=== PATIENT | male | born 1955 | race Caucasian/White ===

== ENCOUNTER 2018-11-09 21:11 | Inpatient (IN) ==
[2018-11-09] MEDS ORDERED: DOXYCYCLINE PO ONE (22:54)
[2018-11-09] MEDS ORDERED: SOLU-MEDROL IV ONE (22:54)
[2018-11-09] MEDS ORDERED: DUONEB (A & A) INH ONE (22:54)
[2018-11-09 23:21] LABS: BASO# 0.08 X1000 (0.0-0.2); BASO% 1.5 % (0.0-0.8); EOS# 0.23 X1000 (0.0-0.7); EOS% 4.4 % (0.0-10.0); HEMATOCRIT 40.2 % (42.0-52.0); IMM GRAN# 0.02 X1000 (0.0-0.04); IMM GRAN% 0.4 % (0.0-0.5); LYMPH# 1.77 X1000 (1.2-3.4); LYMPH% 33.6 % (20.5-51.1); MCH 26.5 PG (27-31); MCHC 32.3 g/dL (33-37); MCV 81.9 FL (81-99); MONO# 1.09 X1000 (0.11-0.59); MONO% 20.7 % (1.7-9.3); MPV 9.6 FL (7.4-10.4); NEUT# 2.08 X1000 (1.4-6.5); NEUT% 39.4 % (42.2-75.2); PLT 272 X1000 (130-400); RBC 4.91 XMIL (4.7-6.1); RDW 14.2 % (11.5-14.5); WBC 5.27 X1000 (4.8-10.8)
[2018-11-09 23:28] LABS: AGAP 11; ALB/GLOB RATIO 1.1; ALBUMIN 4.2 g/dL (3.5-5.0); ALKALINE PHOSPHATASE 43 U/L (32-122); BUN 18 mg/dL (8-22); CALCIUM 8.5 mg/dL (8.8-10.2); CHLORIDE 106 mmol/L (98-107); COSMO 285; CREATININE 0.8 mg/dL (0.7-1.2); ESTIMATED GFR > 60; GLUCOSE 103 mg/dL (70-104); GOT 27 U/L (10-34); GPT 18 U/L (10-44); POTASSIUM 3.8 mmol/L (3.5-5.1); SODIUM 142 mmol/L (136-145); TCO2 25 mmol/L (25-35); TOTAL PROTEIN 7.9 g/dL (6.3-8.3)
--- NOTE | 2018-11-10 00:08 | PROVIDER DOCUMENTATION ---
This chart was entered by Minerva Mccallum Scribe, acting as scribe for Tigre Box MD. HPI-Respiratory General - General Chief Complaint: Shortness of Breath Stated Complaint: "shortness of breath" Time Seen by Provider: 11/09/18 21:15 Source: patient Allergies/Adverse Reactions: Patient Allergies Allergy/AdvReac Type Severity Reaction Status Date / Time vancomycin Allergy ANAPHYLAXIS Verified 02/21/18 03:31 hydrocodone AdvReac Severe VOMITING Verified 02/21/18 03:31 Home Medications: Home Medication List Medication Instructions Recorded Confirmed Last Taken Type Aspirin [Lo-Dose Aspirin EC] 81 mg PO QAM 02/21/18 02/21/18 02/20/18 History Carvedilol [Coreg] 25 mg PO BID 02/21/18 02/21/18 02/20/18 History Clonidine HCl [Clonidine HCl ER] 0.1 mg PO BID PRN PRN 02/21/18 02/21/18 History Furosemide [Lasix] 40 mg PO DAILY 02/21/18 02/21/18 02/20/18 History Lisinopril 1 tab PO BID 02/21/18 02/21/18 02/20/18 History Meclizine [Antivert] 25 mg PO 3-4XDAY PRN PRN #30 tab 02/21/18 Unknown Rx Tramadol [Ultram] 50 mg PO Q6H PRN PRN 02/21/18 02/21/18 Unknown History Cephalexin [Keflex] 500 mg PO BID #14 cap 06/23/18 Unknown Rx - History of Present Illness-Resp Nature of Presenting Problem: 63yom with hx HTN c/o productive cough with yellow sputum and sob for 2 days. He reports he had diaphoresis today. He reports he has not had a bowel movement since yesterday. He denies fever, chills, n,v,d,cp. The patient's daughter is at bedside. Quality of Pain: reports: aching Severity in ED: reports: mild Onset/Duration: reports: 2 days ago Timing: reports: still present, intermittent Cough Quality/Degree: reports: moderate, productive cough Current Respiratory Medication Therapy: Initiated see nurses note Modifying Factors: improves with: nothing Associated Symptoms: reports: cough, shortness of breath. denies: fever/chills Similar Symptoms Previously?: No Recently seen or treated by another doctor?: No Review of Systems - Adult - REVIEW OF SYSTEMS - ADULT Constitutional: denies: chills, fever Eyes: denies: discharge, dry eyes Ears, Nose, Mouth & Throat: denies: ear discharge, ear pain Cardiovascular: denies: chest pain, palpitations Respiratory: reports: cough, shortness of breath Gastrointestinal: denies: abdominal pain, diarrhea, nausea, vomiting Genitourinary: denies: dysuria, hematuria Musculoskeletal: denies: back pain, muscle aches, muscle weakness Integumentary: reports: no symptoms reported Neurological: denies: dizziness/vertigo, headache/migraines Psychiatric: reports: no symptoms reported Endocrine: reports: no symptoms reported Hematologic/Lymphatic: reports: no symptoms reported Allergic/Immunologic: reports: no symptoms reported All Other Systems: Reviewed and Negative Past History - Adult - PAST MEDICAL HISTORY-ADULT Review of Records: reports: Old Records Reviewed, Nursing Assessment Review, Medications Reviewed Major Childhood Illnesses: reports: denies history Cardiovascular: reports: HTN Respiratory: reports: denies history Gastrointestinal: reports: other (chronic constipation from opiod use) Obstetrical/Gynecological: reports: denies history Genitourinary: reports: kidney disease, kidney stones Musculoskeletal: reports: arthritis, chronic pain Neurological: reports: denies history Endocrine/Immune: reports: denies history Other Conditions: reports: denies history - PRIOR SURGERIES/PROCEDURES Surgical/Procedure History: reports: reviewed, not pertinent - IMMUNIZATION STATUS Childhood Immunizations: See Nurse Assessment Flu Vaccine: See Nurse Assessment - FAMILY HISTORY Family History: reviewed, not pertinent - SOCIAL HISTORY Smoking: non-smoker Substance Use: denies Living Situation: family Physical Exam-General - PHYSICAL EXAM-ADULT Initial Vital Signs Reviewed: Yes - CONSTITUTIONAL General Appearance: alert, no apparent distress - EYES Eyes: PERRL/EOMI, pink conjunctivae - NECK Neck: non-tender, supple - RESPIRATORY Respiratory: rhonchi (bilaterally in lower lung cordero), wheezing (expiratory, bilaterally) - CARDIOVASCULAR Cardiovascular: regular rate, rhythm, no murmur - GASTROINTESTINAL (ABDOMEN) Abdominal Exam: normal bowel sounds, soft, tenderness (LUQ) - MUSCULOSKELETAL Extremity: normal range of motion, non-tender, normal inspection, no pedal edema - SKIN Integumentary: normal color, warm/dry - NEUROLOGIC Neurologic: grossly normal, no motor/sensory deficits - PSYCHIATRIC Psych/Mental Status: normal mood/affect, normal thought content, normal thought process, oriented x 3 Progress - PLAN OF CARE/RESULTS Progress/Plan/Lab Results: Vital Signs - 8 hr 11/09/18 21:15 11/09/18 23:25 Temperature 98.0 F Pulse Rate 62 83 Respiratory Rate 20 20 Blood Pressure 165/82 O2 Sat by Pulse Oximetry 91 L 99 Laboratory Results - last 24 hr 11/09/18 11/09/18 21:24 21:24 WBC 5.27 RBC 4.91 Hgb 13.0 L Hct 40.2 L MCV 81.9 MCH 26.5 L MCHC 32.3 L RDW Std Deviation 14.2 Plt Count 272 MPV 9.6 Immature Gran % (Auto) 0.4 Neut % (Auto) 39.4 L Lymph % (Auto) 33.6 Wilkin % (Auto) 20.7 H Eos % (Auto) 4.4 Baso % (Auto) 1.5 H Immature Gran # (Auto) 0.02 Neut # (Auto) 2.08 Lymph # (Auto) 1.77 Wilkin # (Auto) 1.09 H Eos # (Auto) 0.23 Baso # (Auto) 0.08 Sodium 142 Potassium 3.8 Chloride 106 Carbon Dioxide 25 Anion Gap 11 BUN 18 Creatinine 0.8 Estimated GFR/1.73 m2 > 60 BUN/Creatinine Ratio 23 Glucose 103 Calculated Osmolality 285 Calcium 8.5 L Total Bilirubin 0.50 AST 27 ALT 18 Alkaline Phosphatase 43 Total Protein 7.9 Albumin 4.2 Globulin 3.7 Albumin/Globulin Ratio 1.1 Orders Category Date Time Status CHEST-2 VIEWS [RAD] Stat Exams 11/09/18 22:52 Taken CBC WITH ELECTRONIC DIFF [HEME] Stat Lab 11/09/18 21:24 Completed COMPREHENSIVE METABOLIC PANEL [CHEM] Stat Lab 11/09/18 21:24 Completed Albuterol 2.5MG/Ipratrop 0.5MG [Duoneb (A & A)] Med 11/09/18 22:54 Discontinued 3 ml INH NOW ONE Doxycycline Med 11/09/18 22:54 Discontinued 100 mg PO NOW ONE Methylprednisolone Sod Succ [Solu-Medrol] Med 11/09/18 22:54 Discontinued 80 mg IV NOW ONE Aerosol Treatments Stat Oth 11/09/18 22:54 Completed Result Diagrams: 11/09/18 21:24 11/09/18 21:24 - EKG 1 Time of EKG reading by physician:: 21:20 EKG Read and Signed by:: Tigre Box EKG Interpretation (*Must complete 3 of following elements*): Abnormal Rate: 60 Rhythm: Undetermined rhythm [place]: normal QRS: normal Comments: Septal infarct, No STEMI - XRAY 1 XRAY Study: Chest Impression: Abnormal (left lower lobe pneumonia) Departure - Departure Date of Disposition Decision: 11/10/18 Time of Disposition Decision: 00:08 DIAGNOSIS: Pneumonia Disposition: ADMITTED INPATIENT 09 Certified Medical Emergency: Emergent Condition: Stable Additional Freetext Instructions: ED Follow Up Instructions: You have been treated by a care provider in the Emergency Department. These instructions are being provided to you so you can have an understanding of how to care for yourself upon discharge. Upon discharge from the Emergency Department, you are responsible for making arrangements for follow-up care by a physician of your choice. Take all prescribed medications as directed. Return to the Emergency Department immediately for any new or worsening symptoms. You may call the Physician Referral phone number at [phone] to obtain a list of Physicians who are taking new patients. Referrals and Follow-Ups: [facility] [Primary Care Provider] - - Critical Care Note This patient required my direct & personal management of CC.: No Attestation - Physician/ ASUNCION Attestation Patient care was provided by Advanced Practice Provider:: No The physician spent face to face time with patient:: Yes Advanced Practice Provider documentation review:: Supervising physician onsite and consulted in the evaluation and care of this patient. The physician did have a face to face encounter with the patient. This chart was documented by the indicated scribe, (Minerva Mccallum, Susanibstephanie) and accurately reflects the services I performed and decisions made by me, Tigre Box MD, as attested by the provider's signature.
[2018-11-10] MEDS: ROCEPHIN 1 GM in NS 50 ML IV SCH (02:00)
[2018-11-10 02:37] LABS: MAGNESIUM 2.2 mg/dL (1.5-2.7)
[2018-11-10 02:43] LABS: INR 0.98; PROTIME 13.8 Seconds (11.0-16.0)
[2018-11-10 02:44] LABS: PTT 31.7 Seconds (22.3-41.8)
[2018-11-10] MEDS: ZITHROMAX 500 MG/NS 500 MG/250 ML IVPB IV SCH (03:00)
[2018-11-10] MEDS ORDERED: DUONEB (A & A) INH PRN (05:06)
[2018-11-10] MEDS ORDERED: DUONEB (A & A) INH SCH (05:06)
[2018-11-10] MEDS ORDERED: ZOFRAN IV PRN (05:06)
[2018-11-10] MEDS ORDERED: TYLENOL PO PRN (05:06)
--- NOTE | 2018-11-10 06:59 | HISTORY AND PHYSICAL ---
PRIMARY CARE PROVIDER: Dr. Edwar Cai in [place]. CHIEF COMPLAINT: Shortness of breath. HISTORY OF PRESENT ILLNESS: Mr. Moody is a 63-year-old, male, who states that for approximately one week now that he has been feeling weak and fatigued. He stated that approximately 3-days-ago that he began having a productive cough that initially had white thin sputum, though now has yellow sputum. He states that he does know if he has had a fever, though states that he has had periods where he broke out in a sweat. He does report body aches. He has reported that he has been around people recently who have had cold-type symptoms, though does not know if he has been around anyone with the flu. The patient states that he normally does not require any oxygen supplementation. He states that yesterday he began feeling short of breath after he had gotten home. He states that he went to take a shower and became acutely short of breath to the point where he said he could not catch his breath at all. He said he broke out in a sweat. They did call the ambulance to bring him to the ER. EMS reported that when they got on scene that his oxygen saturation was 85% on room air. Since that time he has been placed on nasal cannula at 2 L and has attained adequate oxygen saturations in the mid to high 90s. He is also reporting a headache, though he denies any dizziness. He denies any chest pain. The patient states he does feel like his abdomen may be a little more distended than normal, though he states that he does have problems with chronic constipation and his last bowel movement was approximately 4-days-ago. He denies any nausea or vomiting. He denies any hematochezia or melena. He denies any dysuria or urinary frequency. The patient states he does have some intermittent swelling in his lower extremities for which he does take Lasix, though he states that this is not worse than his normal at this time. Upon evaluation in the ER, as previously mentioned the patient was found on scene by EMS to have an oxygen saturation of 85% on room air. He was placed on nasal cannula at 2 L upon arrival to the ER and since that time has been maintaining oxygen saturations in the mid to high 90s. Diagnostic and laboratory studies were pretty unremarkable. Though they did perform a chest x- ray which does look like the patient has a left lower lobe pneumonia. At this time, the patient will be admitted for further treatment and evaluation of his pneumonia. REVIEW OF SYSTEMS: A 14 point review of systems was conducted with the patient and all were negative except for pertinent positives mentioned above in the HPI. PAST MEDICAL HISTORY: 1. Hypertension. 2. Osteoarthritis. 3. Questionable history of COPD. 4. History of second-degree heart block. PAST SURGICAL HISTORY: 1. Right shoulder surgery. 2. Right knee surgery. 3. Right wrist surgery. 4. Right third digit surgery. SOCIAL HISTORY: The patient is . He denies any past or present tobacco, alcohol, or illicit drug use. FAMILY HISTORY: Positive for his father having history of diabetes mellitus and coronary artery disease. Reports that his mother had a history of COPD. ALLERGIES: Vancomycin and hydrocodone. HOME MEDICATIONS: 1. Coreg 25 mg p.o. b.i.d. 2. Aspirin 81 mg p.o. q a.m. 3. Lasix 40 mg p.o. daily. 4. Lisinopril 40 mg p.o. b.i.d. 5. Minoxidil 2.5 mg b.i.d. 6. Tramadol 50 mg p.o. q.6 hours p.r.n. pain. DIAGNOSTIC DATA/LABORATORY RESULTS: 1. White blood cell count is 5,270, hemoglobin 13, hematocrit 40.2, platelet count is 272,000. 2. PT 13.8, INR 0.98, PTT is 31.7. 3. Sodium 142, potassium 3.8, chloride 106, serum bicarb is 25, BUN 18, creatinine 0.8, glucose 103, calcium 8.5. Magnesium 2.2. 4. Liver function tests within normal limits. CK 178. 5. Troponin less than 0.01. 6. EKG shows undetermined rhythm, though it does appear that the patient does have a second-degree heart block. It is a Wenckebach. This is at a rate of 60. With a QTc of 418. 7. Chest x-ray does show what looks to be a left lower lobe pneumonia, though we are awaiting official radiology over-read. PHYSICAL EXAMINATION: VITAL SIGNS: Temperature 97.6 degrees Fahrenheit, heart rate is 70, respirations 18, blood pressure 164/76. Oxygen saturation is 100% on nasal cannula at 2 L. GENERAL: Mr. Moody is a pleasant 63-year-old, obese male, who is resting in the ER stretcher. He was in no acute distress. He was awake and alert and able to answer all questions appropriately. HEENT: Head: Normocephalic and atraumatic. Eyes: Pupils are equal, round and reactive to light, 3 mm bilaterally and brisk. ENT: Oral mucosa is moist. Oropharynx is clear. NECK: Supple. Trachea is midline. CARDIOVASCULAR: The patient has S1, S2 present. There were no murmur, gallop, or rubs present. He does have a regular rate, though irregular rhythm. PULMONARY: The patient does have symmetrical chest expansion bilaterally. Lung sounds were clear in bilateral full cordero. ABDOMEN: Soft, nontender. It does appear to be distended, though the patient does have a protuberant abdomen noted. Bowel sounds were present in all four quadrants and slightly hypoactive. EXTREMITIES: No cyanosis or clubbing noted. The patient does have some trace edema noted in his bilateral lower extremities from approximately mid calf down, though he states this has not worsened. Pulse, motor and sensory intact in all extremities. Pedal pulses and radial pulses are 2+ bilaterally. INTEGUMENTARY: The patient's skin is pink, warm and dry. NEUROLOGIC: The patient is alert and oriented x4. There do not appear to be any focal neurological deficits noted. IMPRESSION AND PLAN: 1. Left lower lobe pneumonia. Blood cultures have been obtained. We have also ordered a sputum culture. We are awaiting an Influenza screen. We have placed the patient with empiric antibiotics for community-acquired pneumonia of Rocephin and azithromycin. We will do incentive spirometry, scheduled DuoNeb treatments. We will encourage him to cough, turn, and deep breathe. 2. Hypertension. We will continue his regularly prescribed home medications. 3. History of second-degree heart block. The patient does have an irregular rhythm that does appear to be definitely prolonged NC interval, though there are times where it does appear that he is in a second-degree heart block, Wenckebach. Though rate does maintain usually in the 60s and 70s, though only briefly will drop occasionally into the 40s though it does immediately return back to his baseline of 60s and 70s. The patient is not symptomatic in this. He will be placed on Cardiac Telemetry and we will continue to monitor closely. 4. Chronic constipation. We will place the patient with a bowel regimen. He states his last bowel movement was 4-days-ago. 5. Deep venous thrombosis prophylaxis. He is provided with Lovenox 40 mg subcutaneous q.24 hours. The patient has been placed on the medical floor with telemetry. He will have vital signs q.6 hours. We will do strict intake and output. We will repeat a CBC and BMP in the morning. He will be on a Heart Healthy diet. Further orders and recommendations pending hospital course, diagnostic studies, and physical evaluation. Dictated by ERIKA Pinzon for Gavin Noyola MD cc: MD Wilber Turner MD Joel T. Johns
[2018-11-10] MEDS: LOVENOX SUBQ SCH (07:01)
--- NOTE | 2018-11-10 07:33 | Diag Imaging Result Doc PS360 ---
EXAM: CHEST-2 VIEWS 11/09/2018 HISTORY: cough TECHNIQUE: PA and lateral chest COMMENT: There is ill-defined opacity in the lingula and left lower lobe. This is slightly worse in appearance than on 02/21/2018 and certainly compared to 12/25/2016. Otherwise there has been no significant change. IMPRESSION: Mild bronchopneumonia on the left. Electronically signed by Micah Calderon 11/10/2018 7:31 AM
--- NOTE | 2018-11-10 07:37 | EKG Report ---
Test Performed on : 11/09/2018 9:18:47 PM Test Reason : NO EKG ORDER FOR MUSE Blood Pressure : / mmHG Vent. Rate : 060 BPM Atrial Rate : 086 BPM P-R Int : 000 ms QRS Dur : 090 ms QT Int : 418 ms P-R-T Axes : 000 025 035 degrees QTc Int : 418 ms Undetermined rhythm Septal infarct (cited on or before 21-FEB-2018) Abnormal ECG When compared with ECG of 21-FEB-2018 03:19, Current undetermined rhythm precludes rhythm comparison, needs review Unconfirmed Result
[2018-11-10 07:40] LABS: BASO# 0.02 X1000 (0.0-0.2); BASO% 0.4 % (0.0-0.8); EOS# 0.02 X1000 (0.0-0.7); EOS% 0.4 % (0.0-10.0); HEMATOCRIT 40.9 % (42.0-52.0); HEMOGLOBIN 13.5 g/dL (14.0-18.0); IMM GRAN# 0.05 X1000 (0.0-0.04); IMM GRAN% 1.1 % (0.0-0.5); LYMPH# 0.94 X1000 (1.2-3.4); LYMPH% 20.4 % (20.5-51.1); MCH 27.1 PG (27-31); MONO# 0.09 X1000 (0.11-0.59); MPV 9.4 FL (7.4-10.4); NEUT# 3.49 X1000 (1.4-6.5); NEUT% 75.7 % (42.2-75.2); PLT 265 X1000 (130-400); RBC 4.99 XMIL (4.7-6.1); RDW 14.2 % (11.5-14.5); WBC 4.61 X1000 (4.8-10.8)
[2018-11-10 08:00] LABS: AGAP 10; BUN 16 mg/dL (8-22); CALCIUM 8.3 mg/dL (8.8-10.2); CHLORIDE 103 mmol/L (98-107); COSMO 286; CREATININE 0.7 mg/dL (0.7-1.2); ESTIMATED GFR > 60; GLUCOSE 155 mg/dL (70-104); POTASSIUM 3.9 mmol/L (3.5-5.1); SODIUM 141 mmol/L (136-145); TCO2 28 mmol/L (25-35)
[2018-11-10] MEDS: COREG PO SCH ×2 (09:45→20:24)
[2018-11-10] MEDS: PRILOSEC PO SCH (09:45)
[2018-11-10] MEDS: METAMUCIL POWDER PACKET PO SCH (09:46)
[2018-11-10] MEDS: PRINIVIL PO SCH ×2 (09:46→20:23)
[2018-11-10] MEDS: ASPIRIN EC PO SCH (09:46)
[2018-11-10] MEDS: LONITEN PO SCH ×2 (09:46→20:24)
[2018-11-10] MEDS: COLACE PO SCH ×2 (09:46→20:23)
[2018-11-10] MEDS: LASIX PO SCH (09:46)
[2018-11-10] MEDS: DUONEB (A & A) INH SCH ×3 (10:44→21:15)
--- NOTE | 2018-11-10 13:38 | PROGRESS NOTE ---
DATE: 11/10/2018 SUBJECTIVE: Mr. Moody remains afebrile. He is feeling better. Breathing is better. OBJECTIVE: Temperature is 97.6, pulse 82, respirations 18, blood pressure 155/83. Pupils are equal and round. Lungs are clear in all lung cordero anterolateral and posterior. Cardiovascular: Regular rate without murmur or S3. Abdomen is soft. Skin is warm and dry. IMPRESSION: 1. He was admitted this morning with shortness of breath. For approximately 1 week now, he has been feeling weak and fatigued. It started about 3 days before this admission. Productive cough. Initially white sputum and then yellow sputum. Had some body aches. He was very short of breath and called the paramedics who brought him here. O2 sats was about 85% on room air. Put him on some nasal cannula then he was admitted with left lower lobe pneumonia and we did get an influenza screen. I think that is pending. Sputum culture is pending. So, we will continue present antibiotics. 2. Hypertension. Blood pressure is under good control. 3. History of 2nd degree AV block. He had somewhat irregular rhythm. Definitely prolonged p.r.n. interval. It does appear that he apparently had a second-degree block or Wenckebach when he came in. Rate was maintained in the 60s and 70s. EKG drop down to 40s. 4. History of constipation. So, he appears to be feeling better. REVIEW OF ORDERS: 1. He is on albuterol ipratropium inhalation p.r.n. q. 2 hours and he is scheduled q.6 hours. 2. Aspirin 81 mg a day. 3. Coreg 25 mg b.i.d. 4. Colace 100 mg b.i.d. 5. Lasix 40 mg a day. 6. Prinivil 40 mg b.i.d. 7. Loniten 2.5 mg b.i.d. 8. Prilosec 40 mg a day. 9. Metamucil 1 scoop daily. 10. Ceftriaxone 1 g daily. 11. Azithromycin 500 mg 24 hours. cc: Ambrocio Choe MD
[2018-11-10] MEDS: ULTRAM PO PRN (23:28)
[2018-11-11] MEDS: ROCEPHIN 1 GM in NS 50 ML IV SCH (01:32)
[2018-11-11] MEDS: ZITHROMAX 500 MG/NS 500 MG/250 ML IVPB IV SCH (03:04)
[2018-11-11] MEDS: DUONEB (A & A) INH SCH ×4 (03:42→21:03)
[2018-11-11] MEDS: LOVENOX SUBQ SCH (05:15)
[2018-11-11] MEDS: COREG PO SCH ×2 (09:20→20:57)
[2018-11-11] MEDS: LONITEN PO SCH ×2 (09:20→20:58)
[2018-11-11] MEDS: COLACE PO SCH ×2 (09:20→20:58)
[2018-11-11] MEDS: PRILOSEC PO SCH (09:20)
[2018-11-11] MEDS: ASPIRIN EC PO SCH (09:20)
[2018-11-11] MEDS: LASIX PO SCH (09:20)
[2018-11-11] MEDS: PRINIVIL PO SCH ×2 (09:21→20:58)
[2018-11-11] MEDS: METAMUCIL POWDER PACKET PO SCH (09:21)
--- NOTE | 2018-11-11 16:19 | PROGRESS NOTE ---
DATE: 11/11/2018 SUBJECTIVE: Mr. Moody is feeling better, but he is still having a good deal of wheezing and a lot of congestion, and does not feel like he is ready go home. OBJECTIVE: Vital Signs: Temperature 97.7 degrees, pulse 74, respirations 19, blood pressure 170/70. He has had good urine output by report. HEENT: Pupils are equal and round. Lungs: Clear in all lung cordero. Cardiovascular: Regular rhythm and rate without murmur or S3. Abdomen: Soft. Skin: Warm and dry. ASSESSMENT AND PLAN: 1. Bronchitis and congestion, some bronchospasm. Chest x-ray from 11/09/2018 with mild bronchopneumonia on the left. Repeat another chest x-ray in the morning. Continue his present orders of bronchodilators and continue ceftriaxone. 2. Hypertension. Blood pressure is well controlled. 3. Chronic obstructive pulmonary disease and chronic obstructive pulmonary disease exacerbation. 4. History of second-degree atrioventricular block. Looking at his lab from yesterday, unremarkable. cc: Ambrocio Choe MD
[2018-11-11] MEDS: ULTRAM PO PRN (21:02)
[2018-11-12] MEDS: ROCEPHIN 1 GM in NS 50 ML IV SCH (03:00)
[2018-11-12] MEDS: ZITHROMAX 500 MG/NS 500 MG/250 ML IVPB IV SCH (04:05)
[2018-11-12] MEDS: DUONEB (A & A) INH SCH ×4 (04:24→21:43)
[2018-11-12] MEDS: LOVENOX SUBQ SCH (05:34)
[2018-11-12] MEDS: PRINIVIL PO SCH ×2 (08:09→21:46)
[2018-11-12] MEDS: COLACE PO SCH ×2 (08:09→21:46)
[2018-11-12] MEDS: ASPIRIN EC PO SCH (08:09)
[2018-11-12] MEDS: LONITEN PO SCH ×2 (08:09→21:45)
[2018-11-12] MEDS: COREG PO SCH ×2 (08:09→21:46)
[2018-11-12] MEDS: PRILOSEC PO SCH (08:09)
[2018-11-12] MEDS: LASIX PO SCH (08:09)
[2018-11-12] MEDS: METAMUCIL POWDER PACKET PO SCH (08:10)
--- NOTE | 2018-11-12 08:45 | Diag Imaging Result Doc PS360 ---
EXAM: CHEST-2 VIEWS HISTORY: bronchopneumonia TECHNIQUE: Chest two views COMPARISON: 11/09/2018 FINDINGS: The lungs are well expanded. The heart is not enlarged. The vessels are not distended. There are no infiltrates. No pleural effusions. IMPRESSION: No pneumonia. Electronically signed by Jayden Kaur 11/12/2018 8:43 AM
--- NOTE | 2018-11-12 15:07 | PROGRESS NOTE ---
DATE: 11/12/2018 SUBJECTIVE: Mr. Moody does not feel like his breathing is doing any better, and he just walked a short ways to the bathroom, and he said he is very short of breath. He is afraid to go home. He feels like something more is wrong with his lungs. His is concerned as well. OBJECTIVE: He has remained afebrile. Temperature 97.7, pulse 69, respirations 17. Pupils are equal and round. I do not see any distended neck veins or elevated CVP pressure. Lungs are clear with mild end-expiratory wheezing, scattered. Cardiovascular: Regular rhythm and rate without murmur or S3. Abdomen is soft. Skin is warm and dry. ASSESSMENT AND PLAN: Chest x-ray is really pretty unremarkable. No pneumonia. No infiltrate. I am going to ask Pulmonary to help and ask Dr. Bryan to help. I have been treating for bronchitis and bronchospasm. He seems to have more subjective air hunger, and he feels like he needs the O2 at home. I am going to check some blood gases tonight and again in the morning. Ask Dr. Bryan to see. I am going to get a CT angiogram of his chest and get an echocardiogram and look at his left ventricle. His blood pressures have been running a little bit high. He is on lisinopril 40 mg twice a day. I have him on ceftriaxone 1 g q. 24 hours. He is getting Ultram 50 mg q.6 hours p.r.n. pain, Azithromycin 500 mg q 24 hours, as well as his breathing treatments. cc: Ambrocio Choe MD
--- NOTE | 2018-11-12 16:04 | Diag Imaging Result Doc PS360 ---
EXAM: CT ANGIOGRM PULMONARY ARTERIES 11/12/2018 HISTORY: Rule out PE TECHNIQUE: This exam was performed using automated exposure control, adjustment of mA or kV according to patient size, and/or use of iterative reconstruction technique. COMMENT: 3-D MIPS were performed. The current examination is compared with the previous noncontrast study of 12/12/2014. Contrast opacification of the pulmonary arteries is somewhat suboptimal but there are no definite filling defects. The aorta is not distended. There is no evidence of dissection. No abnormal fluid collections are present. There is no evidence of significant adenopathy. There are ill-defined opacities in the lateral costophrenic sulcus of the left lower lobe which were not present on the previous examination. A similar opacity is present in the inferolateral lingula IMPRESSION: Minimal bronchopneumonia in the left lower lobe and lingula. No evidence of pulmonary emboli. Electronically signed by Micah Calderon 11/12/2018 4:02 PM
[2018-11-12 16:05] LABS: ALLEN TEST YES; BE 5.1 mmoll (-3.0-3.0); BLOOD TYPE ARTERIAL; HCO3-(ACT) 28.9 mmoll (20.0-26.0); METHB 1.1 % (0.0-1.5); O2(CT) 17.6 mL/dL (15.0-23.0); O2HB 96.2 % (95.0-99.0); PCO2(98.6) 47 mmHg (35-45); PO2(98.6) 96 mmHg (60-100); SAMPLE BLOOD; THB 12.9 g/dL (11.5-17.4); pH(98.6) 7.42 (7.35-7.45)
[2018-11-12 16:06] LABS: MODALITY CANNULA
[2018-11-12] MEDS: ULTRAM PO PRN (18:45)
[2018-11-13] MEDS: ROCEPHIN 1 GM in NS 50 ML IV SCH (01:10)
[2018-11-13] MEDS: ZITHROMAX 500 MG/NS 500 MG/250 ML IVPB IV SCH (02:40)
--- NOTE | 2018-11-13 02:51 | ECHO REPORT ---
ORDER DATE: 11/12/2018 INDICATION: Evaluate LV systolic function. FINDINGS: 1. The right atrium is moderately enlarged at 5.7 cm. 2. Trace tricuspid regurgitation. RV systolic pressure of 37. 3. Normal RV size and systolic function. 4. No significant pulmonic insufficiency. 5. Left atrium is mildly enlarged at 5.3 cm with a volume index of 37. 6. No mitral valve prolapse. Trace mitral regurgitation. 7. Normal LV size, end-diastolic dimension of 5.2. Moderate left ventricular hypertrophy with a posterior and interventricular septal wall thickness of 1.5 cm each. Normal LV systolic function. Estimated EF of 55% to 60% with normal wall motion. 8. Aortic valve seems to open well. No evidence of stenosis or insufficiency. 9. Aorta appears normal visualized segments. 10. No pericardial effusion seen. 11. This was a difficult study with the patient who is 5 feet 9 and weighs 317 pounds. cc: MD Ambrocio Maguire MD
[2018-11-13] MEDS: DUONEB (A & A) INH SCH ×4 (03:00→21:45)
[2018-11-13 05:32] LABS: ALLEN TEST YES; BE 3.5 mmoll (-3.0-3.0); BLOOD TYPE ARTERIAL; HCO3-(ACT) 27.6 mmoll (20.0-26.0); METHB 1.1 % (0.0-1.5); O2(CT) 18.2 mL/dL (15.0-23.0); O2HB 96.3 % (95.0-99.0); PO2(98.6) 112 mmHg (60-100); SAMPLE BLOOD; SAO2 99.1 % (95.0-100.0); THB 13.3 g/dL (11.5-17.4); pH(98.6) 7.35 (7.35-7.45)
[2018-11-13 05:33] LABS: MODALITY CANNULA; PCO2(98.6) 55 mmHg (35-45)
[2018-11-13] MEDS: LOVENOX SUBQ SCH (06:21)
[2018-11-13] MEDS: METAMUCIL POWDER PACKET PO SCH (08:35)
[2018-11-13] MEDS: PRILOSEC PO SCH (08:36)
[2018-11-13] MEDS: ASPIRIN EC PO SCH (08:36)
[2018-11-13] MEDS: COLACE PO SCH ×2 (08:36→21:48)
[2018-11-13] MEDS: LONITEN PO SCH ×2 (08:36→21:48)
[2018-11-13] MEDS: COREG PO SCH ×2 (08:36→21:48)
[2018-11-13] MEDS: PRINIVIL PO SCH ×2 (08:36→21:48)
[2018-11-13] MEDS: LASIX PO SCH (08:36)
[2018-11-13] MEDS: ULTRAM PO PRN (09:31)
--- NOTE | 2018-11-13 11:03 | PROGRESS NOTE ---
DATE: 11/13/2018 SUBJECTIVE: Mr. Moody still does not feel very good. He feels like his lungs are very congested. He did not have a good night. He is still coughing up sputum. I had checked a CT angiogram and echocardiogram. His left ventricular function looks okay. I do not see evidence of pulmonary venous hypertension nor does he have any evidence of pulmonary emboli. He does have what appears to be a left lower lobe pneumonia but it appears to be improving clinically. His blood gases from yesterday: pH was 7.42, pCO2 of 47, PO2 was 96. This morning, pH is 7.35, pCO2 of 55 and PO2 is 112. So, his pulmonary angiogram showed minimal bronchopneumonia in the left lower lobe and lingula. OBJECTIVE: Exam today: Afebrile. Temperature 97.8, pulse 86, respirations 20, blood pressure 151/69. Pupils are equal and round. Lungs are clear in all lung cordero. Cardiovascular: Regular rhythm and rate without murmur or S3. Abdomen is soft. Skin is warm and dry. Urine output was over a liter, I think, by report. ASSESSMENT AND PLAN: 1. Left lower lobe and left lingular pneumonia seems to be improving. No sign of left ventricular dysfunction. Strong ventricle. No sign of pulmonary emboli. So continue his present orders but try to increase his activity and see if we can get him home. 2. Blood pressures have been running a little bit high, so we will make some adjustments on his blood pressure medication. MEDICATIONS: 1. He is on Coreg 25 mg b.i.d. 2. He gets Lasix 40 mg a day. 3. Prinivil 40 mg b.i.d. 4. Will add Norvasc 5 mg twice a day and see if that will help. 5. Continue his ceftriaxone 1 g IV daily. cc: Ambrocio Choe MD
[2018-11-13] MEDS: NORVASC PO SCH ×2 (11:46→21:48)
[2018-11-14] MEDS: ROCEPHIN 1 GM in NS 50 ML IV SCH (01:05)
[2018-11-14] MEDS: ZITHROMAX 500 MG/NS 500 MG/250 ML IVPB IV SCH (02:17)
[2018-11-14] MEDS: DUONEB (A & A) INH SCH ×2 (03:59→09:40)
[2018-11-14] MEDS: LOVENOX SUBQ SCH (05:47)
[2018-11-14 07:49] VITALS: BP 178/75
[2018-11-14] MEDS: NORVASC PO SCH (08:43)
[2018-11-14] MEDS: LONITEN PO SCH (08:43)
[2018-11-14] MEDS: PRILOSEC PO SCH (08:43)
[2018-11-14] MEDS: PRINIVIL PO SCH (08:43)
[2018-11-14] MEDS: LASIX PO SCH (08:43)
[2018-11-14] MEDS: COLACE PO SCH (08:43)
[2018-11-14] MEDS: COREG PO SCH (08:43)
[2018-11-14] MEDS: METAMUCIL POWDER PACKET PO SCH (08:44)
[2018-11-14] MEDS: ASPIRIN EC PO SCH (08:44)
--- NOTE | 2018-11-14 14:14 | DISCHARGE SUMMARY ---
ADMISSION DATE: 11/10/2018 DISCHARGE DATE: 11/14/2018 PRIMARY CARE PHYSICIAN: He is followed by Dr. Edwar Cai in [place]. HISTORY AND HOSPITAL COURSE: He presented with shortness of breath. This 63-year-old male states that for approximately 1 week he had been feeling weak and fatigued. Stated that approximately 3 days before he developed a productive cough and then had white, thin sputum and now thick and yellow. He did not know if he had any fever, though he states that he had periods where he broke out in a sweat, body aches. He reported he had been around people recently with cold-type symptoms, so does not know if he was around anyone with the flu. The patient states that he normally does not require any oxygen supplementation but the day before admission he seemed very short of breath. He went to take a shower and became acutely short of breath, to the point where he could not catch his breath at all, broke out in a sweat, and they called the ambulance, brought him here. When he arrived his O2 saturations were 85% on room air. He had nasal cannula put on at 2 L and his saturations were in the mid to high 90s. Workup suggested bronchitis and pneumonia and so he was put on some antibiotics, bronchodilators, and steroids. He showed steady improvement but still concerned about his dyspnea, to the point where he felt he could only take a couple of steps and then he would get short of breath. I did a pulmonary angiogram. He had no pulmonary emboli. Pulmonary angiogram was done on 11/12/2018. It revealed minimal bronchopneumonia in the left lower lobe and lingula. No evidence of pulmonary emboli. I did an echocardiogram. He has good left ventricular function. No sign of significant valvular dysfunction. Pulmonary was asked to see. He seemed to have good air and gas exchange and wanted to go home on 11/14/2018. I will discharge him home. DISCHARGE MEDICATIONS: His home medications were aspirin 81 mg a day, Coreg 25 mg b.i.d. He takes clonidine 0.1 mg b.i.d. p.r.n., Lasix 40 mg a day, lisinopril 1 tablet twice a day, minoxidil 1 b.i.d. He has Ultram that he takes at home, 50 mg p.r.n. I did give him Norvasc 5 mg b.i.d. Of course, he is on aspirin once a day. I will discharge him home on Levaquin 750 mg once a day for another 5 days. FOLLOW UP: He is to follow up with his primary care physician. cc: Ambrocio Choe MD
[2018-11-14] MEDS ORDERED: FLU VACCINE IM ONE (14:20)
--- NOTE | 2018-11-15 04:08 | CONSULTATION ---
DATE OF CONSULTATION: 11/13/2018 CHIEF COMPLAINT: Shortness of breath. Weakness. HISTORY OF PRESENT ILLNESS: This is a 63-year-old male, who states that he has been feeling weak and fatigued for approximately 1 week. He states that he has had a productive cough that has been ongoing for about 3 days now. Following assessment, the patient states that he does not have any shortness of breath, denies. CT pulmonary angiogram revealed minimal bronchial pneumonia in the left lower lobe and lingula. No evidence of pulmonary emboli. REVIEW OF SYSTEMS: A 10-point review of systems was obtained and the pertinent is listed within the HPI, otherwise noncontributory. PAST MEDICAL HISTORY: 1. Hypertension. 2. Osteoarthritis. 3. Questionable COPD. 4. Second-degree heart block. PAST SURGICAL HISTORY: Right shoulder surgery, right knee surgery, and right wrist surgery. Surgery to the third digit on the right hand. SOCIAL HISTORY: The patient is . Denies any past or present tobacco, alcohol or illicit drug use. FAMILY HISTORY: Diabetes mellitus and coronary artery disease on his father's side. Reports that his mother had a history of COPD. ALLERGIES: Vancomycin. Hydrocodone. HOME MEDICATION: See home reconciliation list. PHYSICAL EXAMINATION: General: This is a 63-year-old male who appears in no acute distress at the present time. Vital Signs: Temperature 97.6, heart rate 70, respirations 18, blood pressure 164/76, O2 saturation 100% with oxygen at 2 L per nasal cannula. HEENT: Head is normocephalic, atraumatic. Eyes, pupils are equal and reactive to light and accommodation. Ear/nose/throat, moist. Neck: Supple. Trachea is midline. Cardiovascular: S1-S2 auscultated. No gallops, murmurs, or rubs. Regular rate and rhythm. Pulmonary: Decreased lung sounds bilaterally. Nonlabored. Symmetrical chest expansion bilaterally. Abdomen: Soft. Nontender. Distended. Bowel sounds present in all 4 quadrants but slightly hypoactive. Extremities: No cyanosis or edema. Pedal pulses bilaterally 2+. Integumentary: The patient' s skin is warm, dry, and intact. Neurologic: The patient is alert and oriented x4. DIAGNOSTIC DATA: Chest x-ray on 11/09/2018. Impression: Mild bronchopneumonia on the left. Pulmonary arteriogram as mentioned in the HPI. White blood cells 4.61, red blood cells 4.99, hemoglobin 13.5, hematocrit 40.9. PT 13.8, INR 0.98, PTT 31.7. The pH was 7.35, pCO2 55, pO2 112, HC03 27.6, base excess 3.5, oxyhemoglobin 96.3. ASSESSMENT AND PLAN: 1. Acute bronchitis. 2. Shortness of breath. 3. Possible bronchospasm. 4. Constipation PLAN: 1. Continue to monitor with ABGs, pro-BNP. CT angiogram obtained. 2. Continue bronchodilators and antibiotics as prescribed. 3. Continue GI prophylaxis with Prilosec 40 mg p.o. daily. 4. Continue with Metamucil powder packets p.o. each day. 5. Continue with DVT prophylaxis with Lovenox 40 mg subcu daily. Thank you for the courtesy of this consult. Dictated by ERIKA Perez for Niki Bryan MD cc: ERIKA Perez MD [facility]
== END 2018-11-14 14:50 | disposition home or self-care (01) | DRG 194 ==
LOC: ED 21:11 → SUPCPDRO 11-10 03:52 → SUATTDRO 11-10 03:52 → 3N 11-10 03:52
PROVIDERS: ATTEND Emergency Medicine
CPT/HCPCS: 36415; 71020; 71046; 71275; 80048; 80053; 82550; 82805; 82948; 83735; 83880; 84484; 85025; 85610; 85730; 87040; 87070; 87205; 87275; 87276; 87804; 90686; 93005; 93306; 94640; 94761; 94799; 96365; 96367; 96375; 99285; A9270; C8924; C8929; J0456; J0696; J1650; J2405; J2930; Q9957; Q9967; XXXXX